=== PATIENT | female | born 1960 | race Caucasian/White ===

== ENCOUNTER 2020-07-05 08:00 | Outpatient (CLI) | payer BC, SELFPAY ==
--- NOTE | ~2020-07-05 | XR_ITS ---
XR_CERV2-3V_CR DATE: 07/05/2020 08:32 INDICATION: Neck pain. Bilateral arm radiculopathy. TECHNIQUE: AP, open-mouth, lateral views COMPARISON: None FINDINGS: There is straightening of the cervical spine. C1 and C2 are normally aligned and the odontoid process is intact. No fracture or locked facet or pre vertebral soft tissue swelling. There is 1.5 mm anterolisthesis at C4-5. There is mild degenerative disc disease at C4-5. There is moderately prominent degenerative disc disease at C5-6, with posterior spurring. There is mo derate degenerative disc disease at C6-7. There is uncovertebral joint spurring of the lower cervical spine, most prominent on the left at C5-6 . IMPRESSION: Straightening 1.5 mm anterolisthesis and mild degenerative disc disease at C4-5 Moderately prominent degenerative disc disease at C5-6 Moderate degenerative disc disease at C6-7 Uncovertebral joint spurring, most prominent on the left at C5-6, with expected encroachment upon the left C6 neural foramen Reviewed, dictated and finalized at [facility]. Reviewed, dictated and finalized at location [facility]. ISSIONER OF INTERNAL REVENUE
--- NOTE | ~2020-07-05 | XR_ITS ---
XR lumbar spine 2-3V DATE: 07/05/2020 08:32 INDICATION: Low back pain TECHNIQUE: AP, lateral, coned lateral lumbosacral views COMPARISON: 01/29/2014 MRI lumbar spine FINDINGS: There is mild rotatory levoscoliosis of the lumbar spine. There is mild to moderate osteopenia. No fracture or bone destruction is evident. The included lower thoracic and lumbar pedicles are intac t. There is moderate degenerative disease at L1-2, L3-4, moderately severe degenerative disc disease at L2-3 and L4-5. The sacroiliac joints are unremarkable. Status post cholecystectomy. IMPRESSION: Moderate to moderately severe degenerative disc disease Mild rotatory levoscoliosis Reviewed, dictated and finalized at location [facility]. 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
== END 2020-07-05 08:01 | disposition home or self-care (01) ==
LOC: ANHIMG 08:09
PROVIDERS: PCP Nurse Practitioner Family; Visit Provider Nurse Practitioner Family
DX: M47.812 Spondylosis without myelopathy or radiculopathy, cervical region (principal); M47.816 Spondylosis without myelopathy or radiculopathy, lumbar region; K91.86 Retained cholelithiasis following cholecystectomy; Z93.3 Colostomy status; M41.9 Scoliosis, unspecified
CPT/HCPCS: 72040; 72100

== ENCOUNTER → 2021-06-23 13:44 | Outpatient (CLI) | payer BC, SELFPAY ==
--- NOTE | ~2021-06-23 | MM_ITS ---
EXAMINATION: MM screening ayla BI w prudencio HISTORY: Screening mammogram TECHNIQUE: Craniocaudal and mediolateral oblique 3-D tomosynthesis images were obtained and synthetic 2-D images were generated. CAD analysis was submitted and interpreted. COMPARISON: No prior mammogram is available for comparison at this institution. BREAST PARENCHYMAL COMPOSITION: There are scattered areas of fibroglandular density. FINDINGS: There is no evidence of suspicious mass, calcification, or architectural distortion to sugg est malignancy in either breast. There has been no suspicious interval change. IMPRESSION: 1. No mammographic evidence of malignancy. 2. Recommend routine screening mammography in one year. BI-RADS Category 1: Negative Reviewed, dictated and finalized at location A. ATIONS ADVISOR
== END ==
PROVIDERS: PCP Nurse Practitioner Family; Visit Provider Nurse Practitioner Family
DX: Z12.31 Encounter for screening mammogram for malignant neoplasm of breast (principal)
CPT/HCPCS: 77063; 77067

== ENCOUNTER → 2022-07-15 13:33 | Outpatient (CLI) | payer OTHER, SELFPAY ==
--- NOTE | ~2022-07-15 | CT_ITS ---
EXAMINATION: CT abdomen pelvis wo con DATE: 07/15/2022 13:54 INDICATION: Low back pain. Urinary tract infection. TECHNIQUE: Computed tomography (CT) of the abdomen and pelvis was performed without intravenous contr ast. Automated exposure control and iterative reconstruction technique were employed. Exam dose: 872 .43 mGy-cm total exam DLP. COMPARISON: 12/16/2007 CT renal scan FINDINGS: The lung bases are clear of infiltrate or consolidation. Normal heart size. No pericardial or pleural effusion. Status post cholecystectomy. The liver, spleen, pancreas, and adrenal glands and left kidney are unre markable. Exophytic 4.3 cm lower pole right renal cyst. No ureteral calculus or hydroureteronephrosis . There is mild diffuse bladder wall thickening which may be due to underdistended state; cystitis is not excluded. Normal caliber of the abdominal aorta. No intraperitoneal or retroperitoneal or pelvic mass lesion or adenopathy or ascites. Status post hysterectomy. A couple of sigmoid diverticula are noted. No CT evidence of diverticulitis. No evidence of appendicitis. There is a prominent of fecal material within the colon. No bowel obstru ction or intraperitoneal free air is detected. Small fat-containing umbilical hernia. Included skeletal structures are unremarkable except for degenerative changes of the thoracic and to a greater extent lumbar spine.. IMPRESSION: 4.3 cm lower pole right renal cyst Status post hysterectomy Minimal sigmoid diverticulosis Reviewed, dictated and finalized at [facility]. Reviewed, dictated and finalized at location [facility]. 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
== END ==
PROVIDERS: PCP Nurse Practitioner Family; Visit Provider Nurse Practitioner Family
DX: M54.50 Low back pain, unspecified (principal); N28.1 Cyst of kidney, acquired; Z90.710 Acquired absence of both cervix and uterus; K57.30 Diverticulosis of large intestine without perforation or abscess without bleeding
CPT/HCPCS: 74176

== ENCOUNTER → 2023-05-04 07:34 | Outpatient (CLI) | payer OTHER, SELFPAY ==
--- NOTE | ~2023-05-04 | MR_ITS ---
MRI of the lumbar spine Clinical History: Back pain Technique: Axial T2-weighted images, and sagittal T1-weighted, T2-weighted, and and T2 fat-sat images were acquired. COMPARISON: 01/29/2014 Findings: No fracture identified. There is minimal grade 1 retrolisthesis of L2 over L3. No suspiciou s bone marrow signal abnormality identified. There are reactive marrow signal changes due to degenera tive disc disease. At L1-L2, there is moderate to advanced degenerative disc narrowing. There is mild disc bulge with mi ld to moderate facet arthropathy. No central canal stenosis or definite neural foraminal narrowing. At L2-L3, there is moderate to advanced degenerative disc narrowing. There is mild disc bulge and mil d facet arthropathy. No central canal stenosis. There is mild right neural foraminal narrowing. Left neural foramen preserved. At L3-L4, there is disc bulge and facet arthropathy. No central canal stenosis. There is moderate elmo ateral neural foraminal narrowing, right worse than left. At L4-L5, there is moderate to advanced degenerative disc disease. There is disc bulge and moderate f acet arthropathy. There is severe left neural foraminal narrowing, and mild right neural foraminal na rrowing. No central canal stenosis. At L5-S1, there is minimal disc bulge and mild to moderate facet arthropathy. No central canal stenos is. There is moderate to advanced left neural foraminal narrowing. Right neural foramen preserved. Paravertebral soft tissues are unremarkable. Impression: Moderate degenerative spondylosis, as detailed above, with multilevel neural foraminal narrowing. Minimal grade 1 retrolisthesis of L2 over L3. Reviewed, dictated and finalized at [facility]. Impression: Moderate degenerative spondylosis, as detailed above, with multilevel neural fo raminal narrowing. Minimal grade 1 retrolisthesis of L2 over L3.
== END ==
PROVIDERS: PCP Nurse Practitioner Family; Visit Provider Nurse Practitioner Family
DX: M47.26 Other spondylosis with radiculopathy, lumbar region (principal)
CPT/HCPCS: 72148

== ENCOUNTER 2023-07-02 00:53 | Day surgery (SDC) | payer OTHER, SELFPAY ==
[2023-06-18 12:17] VITALS: BMI 32.3
--- NOTE | 2023-06-30 08:46 | SUR.PREOP ---
Patient called regarding upcoming procedure. Reviewed preop instructions, appointment times, and procedure prep.
--- NOTE | 2023-07-01 15:04 | P.HP_ITS ---
History of Present Illness History of Present Illness Consent: Risks, benefits, and alternatives have been discussed and questions answered. Patient agrees to proceed with procedure. Chief complaint: GERD with Esophagitis,Neoplasm screening Narrative: Amber Atkins is a 62 year old female Referred for investigation of persistent reflux symptoms and for colon cancer screening. [facility] Social History Social History Smoking status: Former smoker Tobacco type: cigarettes Substance use type: does not use Living arrangements: with family Spiritual care concerns: No Meds Home Medications and Allergies Home Medications Medication Instructions Recorded Confirmed Type bupropion HCl 300 mg 24 hr tablet, 300 mg PO DAILY 06/18/23 07/02/23 History extended release deucravacitinib 6 mg tablet 6 mg PO DAILY 06/18/23 07/02/23 History (Howardu) duloxetine 60 mg capsule,delayed 60 mg PO DAILY 06/18/23 07/02/23 History release levothyroxine 112 mcg tablet 112 mcg PO DAILY 06/18/23 07/02/23 History pantoprazole 40 mg tablet,delayed 40 mg PO DAILY 06/18/23 07/02/23 History release rosuvastatin 20 mg tablet 20 mg PO DAILY 06/18/23 07/02/23 History Allergies Allergy/AdvReac Type Severity Reaction Status Date / Time Sulfa (Sulfonamide Allergy Unknown HIVES Verified 07/02/23 06:21 Antibiotics) Assessment and Plan Assessment and plan (1) GERD (gastroesophageal reflux disease): Code(s): K21.9 - Gastro-esophageal reflux disease without esophagitis Status: Acute Assessment and Plan: EGD with possible biopsy or dilatation or cautery. (2) Colon cancer screening: Code(s): Z12.11 - Encounter for screening for malignant neoplasm of colon Status: Acute Assessment and Plan: Colonoscopy with possible biopsy or polypectomy or cautery or injection of substances.
[2023-07-02 06:23] VITALS: BP 116/75; PULSE 65; RESP 16; TEMP 36.8; O2SAT 98
[2023-07-02] MEDS: LACTATED RINGERS 1,000 ML 150 ML IV CONT (06:29)
--- NOTE | 2023-07-02 07:17 | P.PNAN_ITS ---
Anes - Initial Pre Proc Eval Procedure: Operation Date: 07/02/23 07:30 Proposed Procedures p Esophagogastroduodenoscopy & Screening Colonoscopy - Jamil Rondon MD Date/Time: 07/02/23 07:17 Surgeon: Jamil Rondon MD Pre Op Diagnosis: GERD with Esophagitis,Neoplasm screening Patient Data Age: 62 Gender: F Height: 1.68 m Weight: 89.5 kg Last Vital Signs Temp 98.3 F 07/02/23 06:23 Pulse 65 07/02/23 06:23 Resp 16 07/02/23 06:23 BP 116/75 07/02/23 06:23 Pulse Ox 98 07/02/23 06:23 O2 Del Method Room Air 07/02/23 06:23 Allergies Allergy/AdvReac Type Severity Reaction Status Date / Time Sulfa (Sulfonamide Allergy Unknown HIVES Verified 07/02/23 06:21 Antibiotics) Home Medications Medication Instructions Recorded Confirmed Type bupropion HCl 300 mg 24 hr tablet, 300 mg PO DAILY 06/18/23 07/02/23 History extended release deucravacitinib 6 mg tablet 6 mg PO DAILY 06/18/23 07/02/23 History (Sotyktu) duloxetine 60 mg capsule,delayed 60 mg PO DAILY 06/18/23 07/02/23 History release levothyroxine 112 mcg tablet 112 mcg PO DAILY 06/18/23 07/02/23 History pantoprazole 40 mg tablet,delayed 40 mg PO DAILY 06/18/23 07/02/23 History release rosuvastatin 20 mg tablet 20 mg PO DAILY 06/18/23 07/02/23 History Patient hx anesthesia problems: none Family hx anesthesia problems: none Results Review: All pre-operative results and documents have been reviewed as part of the pre- operative evaluation. [facility] Social History Social History Smoking status: Former smoker Tobacco type: cigarettes Substance use type: does not use Living arrangements: with family Spiritual care concerns: No Anes - Eval Final PreProcedure Day of Procedure 07/02/23 07:17 Patient weight: obese Heart: regular rate and rhythm Lungs: clear to auscultation Airway: Mallampati scale class II Neurological: alert and oriented Last oral intake: >/= 8 hours ASA classification: III Emergent: no Anesthetic plan: proceed Anesthesia type and monitoring: general GIVS and standard monitoring Results Review: All pre-operative results and documents have been reviewed as part of the pre- operative evaluation. Informed Consent: The patient's anesthetic plan and its attendant risks and benefits were discussed with the patient/family/POA. Questions were solicited and answers provided to the satisfaction of the patient/family/POA.
--- NOTE | 2023-07-02 07:50 | SUR.OPER ---
EGD ended at 0739. Colonoscopy began at 0750.
--- NOTE | 2023-07-02 08:10 | SUR.OPER ---
pt suctioned multiple times per anesthesia.
[2023-07-02 08:14] VITALS: BP 106/65; PULSE 62; RESP 13; O2SAT 100
[2023-07-02 08:24] VITALS: BP 117/77; PULSE 64; RESP 13; O2SAT 100
[2023-07-02 08:34] VITALS: BP 135/79; PULSE 63; RESP 25; O2SAT 98
== END 2023-07-02 08:40 | disposition home or self-care (01) ==
PROVIDERS: PCP Nurse Practitioner Family; Visit Provider Internal Medicine Gastroenterology
PROC: 0DJ08ZZ Inspection of Upper Intestinal Tract, Via Natural or Artificial Opening Endoscopic (ICD-10-PCS; CPT 43235; principal; 2023-07-02 07:30)
DX: Z12.11 Encounter for screening for malignant neoplasm of colon (principal); D12.4 Benign neoplasm of descending colon; D12.3 Benign neoplasm of transverse colon; K63.5 Polyp of colon; K62.1 Rectal polyp; K21.9 Gastro-esophageal reflux disease without esophagitis; Z87.891 Personal history of nicotine dependence; E66.9 Obesity, unspecified; Z68.31 Body mass index [BMI] 31.0-31.9, adult
CPT/HCPCS: 45385; 45380; 43239; 88305; J2704; J7120

== ENCOUNTER → 2023-08-31 10:25 | Outpatient (CLI) | payer OTHER, SELFPAY ==
--- NOTE | ~2023-08-31 | MM_ITS ---
EXAMINATION: MM screening ayla BI w prudencio HISTORY: Screening TECHNIQUE: Craniocaudal and mediolateral oblique 3-D tomosynthesis images were obtained and synthetic 2-D images were generated. CAD analysis was submitted and interpreted. COMPARISON: 06/23/2021 BREAST PARENCHYMAL COMPOSITION: Breast composed of scattered areas of fibroglandular density FINDINGS: There is no evidence of suspicious mass, calcification, or architectural distortion to sugg est malignancy in either breast. There has been no suspicious interval change. IMPRESSION: 1. No mammographic evidence of malignancy. 2. Recommend routine screening mammography in one year. BI-RADS Category 1: Negative Reviewed, dictated and finalized at location A. ER BUCKER
== END ==
PROVIDERS: PCP Nurse Practitioner Family; Visit Provider Nurse Practitioner Family
DX: Z12.31 Encounter for screening mammogram for malignant neoplasm of breast (principal)
CPT/HCPCS: 77063; 77067

== ENCOUNTER → 2023-10-07 10:24 | Outpatient (CLI) | payer OTHER, SELFPAY ==
--- NOTE | ~2023-10-07 | XR_ITS ---
EXAMINATION: XR hip RT min 2V DATE: 10/07/2023 10:54 INDICATION: Right hip pain TECHNIQUE: Two views of right hip were obtained. COMPARISON: CT, 07/15/2022 FINDINGS: Bone alignment is normal. There is no fracture. Chronic heterotopic ossification is noted n ear the greater trochanter of the right femur. The soft tissues are unremarkable. IMPRESSION: 1. No acute osseous abnormality. Reviewed, dictated and finalized at location L. 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
== END ==
PROVIDERS: PCP Nurse Practitioner Family; Visit Provider Nurse Practitioner Family
DX: M25.551 Pain in right hip (principal)
CPT/HCPCS: 73502

== ENCOUNTER 2024-01-30 10:31 | Emergency (ER) | payer OTHER, SELFPAY ==
--- NOTE | ~2024-01-30 | XR_ITS ---
EXAMINATION: XR chest 1V portable DATE: 01/30/2024 13:12 INDICATION: Cough and shortness of breath TECHNIQUE: frontal view of the chest was obtained. COMPARISON: Chest radiograph dated 01/06/2017 FINDINGS: The lungs remain clear with no focal airspace opacities, pulmonary edema, pleural effusion or pneumot horax. The cardiomediastinal silhouette is normal. Visualized bones and soft tissues are unremarkable . IMPRESSION: 1. No acute cardiopulmonary disease. Reviewed, dictated and finalized at location A.
[2024-01-30 11:13] VITALS: BP 144/83; PULSE 69; RESP 14; TEMP 37.1; O2SAT 99
[2024-01-30 11:31] VITALS: O2SAT 97
[2024-01-30] MEDS: predniSONE 40 MG, predniSONE 10 MG 50 MG PO (11:48)
[2024-01-30] MEDS: ALBUTEROL SULFATE NEB 2.5 MG/3 ML INH 15 MG INHALATION (11:52)
[2024-01-30] MEDS: IPRATROPIUM BR 0.02% INH SOLN 0.5 MG/2.5 ML VIAL 1.5 MG INHALATION (11:52)
[2024-01-30 12:14] LABS: Influenza A QL RT-PCR Negative (Negative); Influenza B QL RT-PCR Negative (Negative); RSV RNA, RT-PCR Negative (Negative); SARS-CoV-2 RNA PCR Negative (Negative)
--- NOTE | 2024-01-30 12:31 | ED.GENADULT ---
HPI - General Adult General Chief complaint: Upper Respiratory Infection Stated complaint: upper respitory Time Seen by Provider: 01/30/24 11:30 History of Present Illness HPI narrative: Patient is a 63-year-old female who presents ER with cough. Ongoing for 2 weeks. Associated with wheezing and mild dyspnea. She has had some phlegm but it has become more yellow and tastes bad. No fevers or chills or sweats. No alleviating factors. Has history of smoking. Related Data Home Medications Medication Instructions Recorded Confirmed bupropion HCl 300 mg 24 hr tablet, 300 mg PO DAILY 06/18/23 07/02/23 extended release deucravacitinib 6 mg tablet 6 mg PO DAILY 06/18/23 07/02/23 (Sotyktu) duloxetine 60 mg capsule,delayed 60 mg PO DAILY 06/18/23 07/02/23 release levothyroxine 112 mcg tablet 112 mcg PO DAILY 06/18/23 07/02/23 pantoprazole 40 mg tablet,delayed 40 mg PO DAILY 06/18/23 07/02/23 release rosuvastatin 20 mg tablet 20 mg PO DAILY 06/18/23 07/02/23 Allergies Allergy/AdvReac Type Severity Reaction Status Date / Time Sulfa (Sulfonamide Allergy Unknown HIVES Verified 07/02/23 06:21 Antibiotics) Review of Systems Review of Systems: All systems reviewed & are unremarkable except as noted in HPI and below Constitutional: Constitutional: Reports no additional constitutional complaints ENT: Reports system reviewed and no additional complaints, except as documented Cardiovascular: Cardiovascular: Reports no additional cardiovascular complaints Respiratory: Respiratory: Reports cough, Reports dyspnea and Reports wheezing Gastrointestinal: Gastrointestinal: Reports no additional gastrointestinal complaints PMFSH Past Medical History Medical History (Updated 01/30/24 @ 13:29 by Duke Melo MD) GERD (gastroesophageal reflux disease) Hyperlipidemia Hypothyroidism Social History Social History Smoking status: Former smoker Tobacco type: cigarettes Substance use type: does not use Living arrangements: with family Spiritual care concerns: No Exam Narrative: GENERAL: Well-appearing, well-nourished, and in no acute distress. HEAD: Normocephalic, atraumatic. ENT: Mucous membranes moist. CHEST: diffuse expiratory wheezing with frequent coughing. No distress. HEART: Regular rate and rhythm. Normal peripheral pulses. ABDOMEN: Soft, nontender, nondistended. EXTREMITIES: Normal range of motion. No edema. SKIN: Warm, dry, no rash. NEURO: Alert and oriented x3. PSYCH: Normal mood and affect. Course Course Emergency Course: Patient feels markedly improved with an hour long nebulizer treatment. Discharge home with inhalers and prednisone. She has received spacer teaching. No pneumonia Vital Signs Vital signs: Vital Signs Temperature 98.7 F 01/30/24 11:13 Pulse Rate 69 01/30/24 11:13 Respiratory Rate 14 01/30/24 11:13 Blood Pressure 144/83 H 01/30/24 11:13 Pulse Oximetry 99 01/30/24 11:13 Oxygen Delivery Room Air 01/30/24 11:13 Temperature 98.7 F 01/30/24 11:13 Pulse Rate 69 01/30/24 11:13 Respiratory Rate 14 01/30/24 11:13 Blood Pressure 144/83 H 01/30/24 11:13 Pulse Oximetry 97 01/30/24 11:31 Oxygen Delivery Room Air 01/30/24 11:31 Medical Decision Making Vital Signs Vital Signs: Vital Signs Temperature 98.7 F 01/30/24 11:13 Pulse Rate 69 01/30/24 11:13 Respiratory Rate 14 01/30/24 11:13 Blood Pressure 144/83 H 01/30/24 11:13 Pulse Oximetry 99 01/30/24 11:13 Oxygen Delivery Room Air 01/30/24 11:13 Temperature 98.7 F 01/30/24 11:13 Pulse Rate 69 01/30/24 11:13 Respiratory Rate 14 01/30/24 11:13 Blood Pressure 144/83 H 01/30/24 11:13 Pulse Oximetry 97 01/30/24 11:31 Oxygen Delivery Room Air 01/30/24 11:31 Lab Data Labs: Lab Results 01/30/24 Range/Units 11:35 Influenza A (RT-PCR) Negative (
[2024-01-30 13:31] VITALS: BP 135/78; PULSE 76; RESP 19; O2SAT 100
== END 2024-01-30 13:36 | disposition home or self-care (01) ==
PROVIDERS: Emergency Medicine; Emergency Provider Emergency Medicine; PCP Nurse Practitioner Family
DX: J40 Bronchitis, not specified as acute or chronic (principal); E78.5 Hyperlipidemia, unspecified; E03.9 Hypothyroidism, unspecified; Z87.891 Personal history of nicotine dependence; Z20.822 Contact with and (suspected) exposure to COVID-19
CPT/HCPCS: 71045; 87637; 94640; 99283; J7512